=== PATIENT | male | born 1945 | race African-American/Black ===

== ENCOUNTER 2017-06-01 10:30 | Outpatient (CLI) | payer MEDICARE ==
--- NOTE | 2017-06-01 13:05 | CT ---
CT ABDOMEN AND PELVIS WITHOUT CONTRAST: Date: 06/01/17 HISTORY: Bladder stone. FINDINGS: Comparison made with exam dated 01/15/14. Absence of IV contrast reduces the sensitivity of exam, particularly for evaluation of solid organs a nd bowel. The lung bases are clear. No free air or free fluid is seen in the abdomen or pelvis. No calcified ga llstones are noted. 5.0 mm cyst in the left lobe of the liver is stable. The 2.0 cm right adrenal dulce noma is also stable. No calculi seen in the kidneys, ureters, or the urinary bladder. No hydroureteronephrosis is seen on either side. The previously noted bladder calculi are not seen on the current exam. The prostate is e nlarged. 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 There is a small hiatal hernia. Degenerative changes are present in the spine. There are vascular zhanna cifications without evidence of aneurysmal dilatation of the abdominal aorta. A normal appearing appe ndix is present. IMPRESSION: 1. No CT evidence of urinary tract calculi or obstruction. 2. Duplicated left ureter. 3. Prostatic enlargement. 4. 5.0 mm left liver lobe cyst. 5. 2.0 cm right adrenal adenoma. POS: OFF
== END 2017-06-01 10:31 | disposition home or self-care (01) ==
LOC: CT 10:30
PROVIDERS: ATTEND Urology
DX: Z87.448 Personal history of other diseases of urinary system (principal); N30.00 Acute cystitis without hematuria; N40.0 Benign prostatic hyperplasia without lower urinary tract symptoms; D35.00 Benign neoplasm of unspecified adrenal gland
CPT/HCPCS: 74176

== ENCOUNTER 2018-04-18 10:28 | Outpatient (CLI) | payer MEDICARE ==
[2018-04-18 11:17] LABS: Bilirubin Negative (Negative); Blood, Urine Negative (Negative); Clarity Clear (Clear); Glucose, Urine (Dipstick) Negative (Negative); Leukocyte Negative (Negative); Nitrite Negative (Negative); Protein, Urine (Dipstick) Negative (Neg-Trace); Specific Gravity, Urine 1.015 (1.005-1.030); Urobilinogen 0.2 mg/dL (0.2-1.0); pH, Urine 5.5 (5.0-9.0)
[2018-04-18 11:23] LABS: Anion Gap 13 mmol/L (10-20); BUN (Urea Nitrogen) 23 mg/dL (8.4-25.7); Calc. Creatinine Clearance 0 mL/min (70-130); Calcium 9.3 mg/dL (7.8-10.44); Carbon Dioxide 28 mmol/L (23-31); Chloride 105 mmol/L (98-107); Estimated GFR-MDRD 58; Glucose 87 mg/dL (83-110); Potassium 3.7 mmol/L (3.5-5.1); RBC/HPF None Seen HPF (0-3); Sodium 142 mmol/L (136-145); WBC/HPF 0-3 HPF (0-3)
[2018-04-18 11:24] LABS: Bacteria/HPF Rare-Few HPF (None Seen)
--- NOTE | 2018-04-18 13:46 | ULT ---
RENAL ULTRASOUND: HISTORY: Benign prostate hyperplasia. COMPARISON: None. TECHNIQUE: Sagittal and transverse imaging of the kidneys performed. FINDINGS: There is bilateral renal cortical thinning. Bilaterally, no hydronephrosis. The right kidney measures 6.0 x 6.1 x 10.4 cm. The left kidney measures 6.1 x 5.3 x 10.4 cm. Prevoid volume is 185 mL. Bladder mucosa is unremarkable. IMPRESSION: No hydronephrosis. POS: SHAHRAM
== END 2018-04-18 10:29 | disposition home or self-care (01) ==
LOC: SCSULT 10:28
PROVIDERS: ATTEND Urology
DX: N40.1 Benign prostatic hyperplasia with lower urinary tract symptoms (principal); R31.29 Other microscopic hematuria; Z87.448 Personal history of other diseases of urinary system
CPT/HCPCS: 36415; 74018; 76770; 80048; 81001; 87086; G0103

== ENCOUNTER 2019-07-14 07:56 | Outpatient (CLI) | payer MEDICARE ==
--- NOTE | 2019-07-14 08:17 | ULT ---
US Renal Bilateral STANDARD HISTORY: Benign prostatic hyperplasia COMPARISON: 04/18/2018 FINDINGS: The right kidney measures 9 cm in length and the left kidney measures 10 cm in length. No f ocal mass or hydronephrosis is seen on either side. The urinary bladder is not satisfactorily dilated and has a volume of 11.5 cc. The bladder wall appea rs thickened measuring about 1 cm. IMPRESSION: 1. No evidence of high-grade obstruction. 2. Bladder wall thickening. Cystoscopy is recommended.
== END 2019-07-14 07:57 | disposition home or self-care (01) ==
LOC: BICULT 07:56
PROVIDERS: ATTEND Urology
DX: N40.1 Benign prostatic hyperplasia with lower urinary tract symptoms (principal); E79.0 Hyperuricemia without signs of inflammatory arthritis and tophaceous disease; N32.89 Other specified disorders of bladder; Z87.448 Personal history of other diseases of urinary system
CPT/HCPCS: 36415; 76770; 80048; 81001; 84550; 87077; 87086; 87186; G0103

== ENCOUNTER 2020-05-29 06:17 | Day surgery (SDC) | payer MEDICARE ==
[2020-05-28 11:37] VITALS: BMI 29.5
[2020-05-29] MEDS ORDERED: Levofloxacin 500 mg/D5W 100 ml Premix Bag ONE (06:45)
[2020-05-29] MEDS ORDERED: Iothalamate Meglumine 60% 50 ML VIAL FS ONE (07:14)
[2020-05-29] MEDS ORDERED: Fentanyl 100 MCG/2 ML VIAL ONE (08:14)
[2020-05-29] MEDS ORDERED: PROPOFOL 40 ML ONE (08:14)
[2020-05-29] MEDS ORDERED: Midazolam HCl 2 mg/2 ml Vial ONE (08:14)
--- NOTE | 2020-05-29 09:40 | OP ---
DATE OF PROCEDURE: 05/29/2020 PREOPERATIVE DIAGNOSES: 1. A 75-year-old male with history of benign prostatic hypertrophy. 2. History of left complete duplicated left ureter. POSTOPERATIVE DIAGNOSES: 1. A 75-year-old male with history of benign prostatic hypertrophy. 2. History of left complete duplicated left ureter. PROCEDURE PERFORMED: Cystoscopy, UroLift implant x8. ANESTHESIA: TIVA. COMPLICATIONS: None apparent. DISPOSITION: To recovery room in stable condition. INDICATIONS FOR THE PROCEDURE: Mr. Biswas is a pleasant 75-year-old male with history of BPH, whom I have been following. He desires to proceed with UroLift for his BPH surgical intervention. Risks and complications of procedure have been discussed with him in detail including, but not limited to, bleeding, pain, infection, injury to adjacent organs, chronic pelvic pain, possible incrustation requiring removal of the implants, more definitive treatment options such as TURP has been discussed. Risks and complications as above outlined, and he desired to proceed without reservation. DESCRIPTION OF PROCEDURE: After an informed consent was signed, the patient was taken to the operating room and placed in a dorsal lithotomy position with the genital area prepped and draped in the usual surgical sterile fashion. 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 These were wide caliber not warranting treatment and I was able to pass a 21-Micronesian cystoscope without difficulty. The caliber of the strictures are about 18-Micronesian caliber. At this time, the bilobar hyperplasia present. Prostate was staged. There was a component of a small early median lobe, however, this was nonobstructing. Cystoscopy was performed with a 30 and 70-degree lens, which demonstrated a right single system ureteral orifice. The left UO demonstrates complete duplication as previous. There was a small early median lobe component again nonobstructing. However, the UOs reflect on component of the small median lobe component. This was visualized and kept out of harm's way. At this time, we transitioned to UroLift implant device cystoscope. We placed a total of 4 implants on the left, 4 on the right. The component of early median lobe did not warrant to be treated as this was nonobstructing. At the end of the procedure, we did create an anterior channel for him. There was some bulging intermittently through the prostatic fossa. However, at the end of the procedure, there was enough anterior channel created to accomplish our goal. Mild oozing was noted. An 18-Micronesian Kemp catheter was able to be passed without significant issues and 30 mL insufflated. I will monitor him for degree of hematuria and anticipate discharge with a voiding trial. Postop medications sent to his home pharmacy. He will follow up with me tomorrow for peak-flow PVR. He is to continue his finasteride and Flomax for now. Job ID: [id number] [facility]
== END 2020-05-29 12:12 | disposition home or self-care (01) ==
LOC: SDC 06:17
PROVIDERS: ATTEND Urology
PROC: 0T7D8DZ Dilation of Urethra with Intraluminal Device, Via Natural or Artificial Opening Endoscopic (ICD-10-PCS; principal; 2020-05-29)
DX: N40.1 Benign prostatic hyperplasia with lower urinary tract symptoms (principal); R35.0 Frequency of micturition; Q62.5 Duplication of ureter; B18.2 Chronic viral hepatitis C; N52.9 Male erectile dysfunction, unspecified; E79.0 Hyperuricemia without signs of inflammatory arthritis and tophaceous disease; I12.9 Hypertensive chronic kidney disease with stage 1 through stage 4 chronic kidney disease, or unspecified chronic kidney disease; N18.9 Chronic kidney disease, unspecified; M19.90 Unspecified osteoarthritis, unspecified site; F32.9 Major depressive disorder, single episode, unspecified; Z87.891 Personal history of nicotine dependence; Z79.899 Other long term (current) drug therapy
CPT/HCPCS: 76000; C9740; C1889; J1956; J2250; J2704; J3010